=== PATIENT | female | born 2000 | race African-American/Black ===

== ENCOUNTER 2023-11-10 23:18 | Emergency (ER) | payer MEDICAID ==
[~2023-11-10] VITALS: Ht 165.1 cm; Wt 96.3 kg
[2023-11-10] MEDS ORDERED: [UNRECOGNIZED DRUG - OTHER] (23:35)
[2023-11-10] MEDS ORDERED: Paxil (23:35)
[2023-11-11 01:20] LABS: HCG, SERUM QUALITATIVE NEGATIVE (NEGATIVE)
[2023-11-11 02:04] LABS: CHLAMYDIA DNA AMPLIFICATION NEGATIVE (NEGATIVE); GC DNA AMPLIFICATION NEGATIVE (NEGATIVE)
[2023-11-11 07:54] VITALS: BP 132/64; TEMP 97.2; O2SAT 99
[2023-11-11 08:15] LABS: FREE T4 1.34 NG/DL (0.89-1.76); THYROID STIMULATING HORMONE 3.417 uIU/ML (0.55-4.78)
[2023-11-11] MEDS ORDERED: MACR100C43 PO (08:21)
== END 2023-11-11 09:10 | disposition home or self-care (01) ==
LOC: M ED 23:18
DX: N39.0 Urinary tract infection, site not specified (principal); N64.4 Mastodynia